=== PATIENT | male | born 1970 | race Caucasian/White ===

== ENCOUNTER 2016-12-07 21:17 | Emergency (ER) | payer OTHER ==
[~2016-12-07] VITALS: Ht 182.9 cm; Wt 147.4 kg
--- NOTE | 2016-12-07 22:21 | PHYS DOC ---
Past Medical History Past Medical History: No Pertinent History Additional Past Medical Histor: chronic back problems Past Surgical History: No Surgical History Alcohol Use: Occasionally Drug Use: None Adult General Chief Complaint Chief Complaint: MULTIPLE COMPLAINTS HPI HPI Patient is a 45 year old M who presents with with a sore throat and chest pain and chills for the past 24 hours. Patient states he is having increased at difficulty swallowing secondary to sore throat. Patient states he is having chest pain on his right side with no cardiac history. Patient denies any previous cardiac disease, no hypertension, no diabetes, no hyperlipidemia the only cardiac risk factor is smoking. Patient states he is having chills off-and -on however has nothing his temperature. Patient has no other complaints. Patient denies any nausea/vomiting/diarrhea. Pertinent exam findings: Female and swelling to the tonsils with exudate Heart was regular rate and rhythm without murmurs Lungs are clear to auscultation bilaterally without crackles wheeze or rales ED course: Patient was seen and evaluated a CBC, BMP, troponin, chest x-ray were ordered 2331: Updated the patient on lab results and x-ray results. Explained to the patient he most likely has strep throat and will treat him with a shot of steroids in the emergency room and send him home with a prescription for antibiotics. Patient comfortable being discharged home. Results: 2226: EKG shows normal sinus rhythm rate of 82 no STEMI CBC 11.2 [place] 128 Troponin negative Chest x-ray NAD MDM: After reviewing the chart, CC/HPI/PMH, physical exam, [lab results], [ radiological results], do not believe the patient have an acute LA or severe bacterial infection warranting further workup and/or admission at this time. I believe the patient has strep throat that he be treated as an outpatient with oral antibiotics. Patient is comfortable being discharged home. Recommended short-term follow-up with PCP in one to 2 days. Additional verbal discharge instructions were provided to the patient and that if symptoms get worse or any new symptoms arise that are worrisome to the patient he is to return to the emergency room immediately Review of Systems Review of Systems GEN: Denies fevers, chills, sweats HEENT: sore throat CV: chest pain RESP: Denies shortness of air, cough GI: Denies n/v/d NEURO: Denies confusion, dizziness MSK: Denies weakness, joint pain/swelling Current Medications Current Medications Current Medications Medications (Trade) Dose Ordered Sig/Siria Start Time Stop Time Status Last Admin Dose Admin Dexamethasone Sodium Phosphate (Decadron) 10 mg 1X ONCE 12/07/16 23:45 12/07/16 23:46 UNV Allergies Allergies Allergies Coded Allergies Type Severity Reaction Last Updated Verified No Known Drug Allergies 06/06/13 No Physical Exam Physical Exam GEN.: No apparent distress. Alert and oriented. HEENT: Head is normocephalic, atraumatic, tonsils swallow with erythema and exudate NECK: Supple. LUNGS: CTAB. HEART: RRR, S1, S2 present. Peripheral pulses intact ABDOMEN: Soft, nontender. Positive bowel sounds. EXTREMITIES: Without any cyanosis. NEUROLOGIC: Normal speech, normal tone PSYCHIATRIC: Normal affect, normal mood. SKIN: No ulcerations Current Patient Data Vital Signs Vital Signs Date Time Temp Pulse Resp B/P (MAP) Pulse Ox O2 Delivery O2 Flow Rate FiO2 12/07/16 22:00 100.7 105 16 159/98 (118) 95 Room Air 100.7 Lab Values Laboratory Tests Test 12/07/16 22:24 White Blood Count 11.2 x10^3/uL (4.0-11.0) H Red Blood Count 4.73 x10^6/uL (4.30-5.70) Hemoglobin 15.5 g/dL (13.0-17.5) Hematocrit 46.3 % (39.0-53.0) Mean Corpuscular Volume 98 fL (79-100) Mean Corpuscular Hemoglobin 33 pg (25-35) Mean Corpuscular Hemoglobin Concent 34 g/dL (31-37) Red Cell Distribution Width 15.1 % (11.5-14.5) H Platelet Count 190 x10^3/uL (140-400) Neutrophils (%) (Auto) 70 % (31-73) Lymphocytes (%) (Auto) 13 % (24-48) L Monocytes (%) (Auto) 17 % (0-9) H Eosinophils (%) (Auto) 0 % (0-3) Basophils (%) (Auto) 1 % (0-3) Neutrophils # (Auto) 7.8 x10^3uL (1.8-7.7) H Lymphocytes # (Auto) 1.4 x10^3/uL (1.0-4.8) Monocytes # (Auto) 1.9 x10^3/uL (0.0-1.1) H Eosinophils # (Auto) 0.0 x10^3/uL (0.0-0.7) Basophils # (Auto) 0.1 x10^3/uL (0.0-0.2) Sodium Level 136 mmol/L (136-145) Potassium Level 3.9 mmol/L (3.5-5.1) Chloride Level 100 mmol/L (98-107) Carbon Dioxide Level 27 mmol/L (21-32) Anion Gap 9 (6-14) Blood Urea Nitrogen 10 mg/dL (8-26) Creatinine 0.9 mg/dL (0.7-1.3) Estimated GFR (Cockcroft-Gault) 91.3 Glucose Level 128 mg/dL (70-99) H Calcium Level 9.2 mg/dL (8.5-10.1) Troponin I Quantitative 0.023 ng/mL (0.000-0.055) Laboratory Tests 12/07/16 22:24 Laboratory Tests 12/07/16 22:24 EKG EKG Normal sinus rhythm rate of 82 no STEMI [] Radiology/Procedures Radiology/Procedures Chest x-ray NAD [] Course & Med Decision Making Course & Med Decision Making Pertinent Labs and Imaging studies reviewed. (See chart for details) [] Dragon Disclaimer Dragon Disclaimer This electronic medical record was generated, in whole or in part, using a voice recognition dictation system. Departure Departure Impression: Primary Impression: Pharyngitis due to Streptococcus species Disposition: HOME, SELF-CARE Condition: IMPROVED Referrals: NO PCP (PCP) Patient Instructions: Strep Throat Additional Instructions: Recommend he follow PCP in one to 2 days and return if symptoms increase Scripts Azithromycin (ZITHROMAX) 250 Mg Tablet 1 PKG PO UD, #6 TAB Prov: CRISTIAN LEON DO 12/07/16 CRISTIAN LEON DO Dec 07, 2016 22:21
[2016-12-07 22:29] LABS: BASO # 0.1 x10^3/uL (0.0-0.2); BASO % 1 % (0-3); EOS % 0 % (0-3); HEMATOCRIT 46.3 % (39.0-53.0); HEMOGLOBIN 15.5 g/dL (13.0-17.5); LYMPH # 1.4 x10^3/uL (1.0-4.8); LYMPH % 13 % (24-48); MEAN CORPUSCULAR HEMOGLOBIN 33 pg (25-35); MEAN CORPUSCULAR HGB CONC 34 g/dL (31-37); MEAN CORPUSCULAR VOLUME 98 fL (79-100); MONO % 17 % (0-9); NEUT % 70 % (31-73); PLATELET COUNT 190 x10^3/uL (140-400); RED BLOOD COUNT 4.73 x10^6/uL (4.30-5.70); RED CELL DISTRIBUTION WIDTH 15.1 % (11.5-14.5); WHITE BLOOD COUNT 11.2 x10^3/uL (4.0-11.0)
[2016-12-07 22:44] LABS: CALCIUM 9.2 mg/dL (8.5-10.1); CREATININE 0.9 mg/dL (0.7-1.3); GFR 91.3; POTASSIUM 3.9 mmol/L (3.5-5.1)
[2016-12-07] MEDS ORDERED: AZIT250T PO (23:36)
[2016-12-07] MEDS ORDERED: DEXAMETHASONE SOD PHOS 4 MG/ML VIAL IV ONE (23:45)
[2016-12-08] VITALS: BP 144/78
[2016-12-08] MEDS ORDERED: DEXAMETHASONE SOD PHOS 20 MG/5 ML VIAL. IM ONE
--- NOTE | 2016-12-08 06:36 | EKG ---
[facility] [address] [place] [address] Test Date: 2016-12-07 Test Time: 22:24:34 Pat Name: SNEHA KOCH Department: Room: Gender: M Biomedical Service Engineer: : 1970 Requested By: CRISTIAN LEON Order Number: [id number] Reading MD: Bailee Cueva Measurements Intervals [place] Rate: 82 P: 26 [place]: 166 QRS: 22 QRSD: 88 T: 31 QT: 336 QTc: 395 Interpretive Statements SINUS RHYTHM QRS(T) CONTOUR ABNORMALITY CONSIDER ANTEROSEPTAL INFARCT CONSIDER INFERIOR MYOCARDIAL DAMAGE ABNORMAL ECG RI6.01 Compared to ECG 11/10/2015 17:41:58 No significant changes Electronically Signed On 12-10-2016 18:59:09 CDT by Bailee Cueva
[2016-12-08 07:27] LABS: NEGATIVE OBC STREP NEG; POSITIVE OBC STREP POS
--- NOTE | 2016-12-08 07:40 | RAD ---
Indication chest pain. PA and lateral views of the chest were obtained. Comparison is made to an examination 13 months earlier. The heart and pulmonary vessels appear normal. The lungs are clear of acute infiltrates. Significant pleural fluid is not seen. There is no pneumothorax. There has not been a significant change when compared to the previous exam. IMPRESSION: No acute or focal process. No significant change
== END 2016-12-08 00:02 | disposition home or self-care (01) ==
LOC: ER 21:17
DX: J02.0 Streptococcal pharyngitis (principal)
CPT/HCPCS: 36415; 71020; 80048; 84484; 85027; 87070; 87880; 93005; 96372; 99285; J1100

== ENCOUNTER 2018-04-23 17:01 | Emergency (ER) | payer SELFPAY ==
[~2018-04-23] VITALS: Ht 182.9 cm; Wt 149.7 kg
[~2018-04-23 17:01] MED LIST: AZIT250T PO
[2018-04-23] MEDS ORDERED: MORPHINE SULFATE 4 MG/ML VIAL. IV/SQ PRN (18:00)
[2018-04-23] MEDS ORDERED: IV NORMAL SALINE 1000ML BAG 1,000 ML IV SCH (18:00)
[2018-04-23 18:11] LABS: BILIRUBIN,URINE NEGATIVE (NEG); CLARITY,URINE CLEAR; COLOR,URINE AMBER; NITRITE,URINE NEGATIVE (NEG); PROTEIN,URINE NEGATIVE (NEG-TRACE)
[2018-04-23 18:11] LABS: BASO # 0.1 x10^3/uL (0.0-0.2); BASO % 1 % (0-3); EOS # 0.1 x10^3/uL (0.0-0.7); EOS % 1 % (0-3); HEMATOCRIT 41.4 % (39.0-53.0); HEMOGLOBIN 14.8 g/dL (13.0-17.5); LYMPH # 0.9 x10^3/uL (1.0-4.8); LYMPH % 12 % (24-48); MEAN CORPUSCULAR HEMOGLOBIN 38 pg (25-35); MEAN CORPUSCULAR HGB CONC 36 g/dL (31-37); MEAN CORPUSCULAR VOLUME 106 fL (79-100); MONO # 0.8 x10^3/uL (0.0-1.1); MONO % 11 % (0-9); NEUT # 5.8 x10^3uL (1.8-7.7); NEUT % 76 % (31-73); PLATELET COUNT 265 x10^3/uL (140-400); RED BLOOD COUNT 3.89 x10^6/uL (4.30-5.70); RED CELL DISTRIBUTION WIDTH 14.4 % (11.5-14.5); WHITE BLOOD COUNT 7.6 x10^3/uL (4.0-11.0)
[2018-04-23 18:21] LABS: BACTERIA,URINE FEW /HPF (0-FEW); RBC,URINE 0 /HPF (0-2); SQUAMOUS EPITHELIAL CELL,UR OCC /LPF; WBC,URINE RARE /HPF (0-4)
[2018-04-23 18:25] LABS: ALBUMIN 2.7 g/dL (3.4-5.0); ALBUMIN/GLOBULIN RATIO 0.6 (1.0-1.7); CALCIUM 9.3 mg/dL (8.5-10.1); CREATININE 0.8 mg/dL (0.7-1.3); GFR 103.6; POTASSIUM 3.7 mmol/L (3.5-5.1)
--- NOTE | 2018-04-23 18:36 | RAD ---
Examination: CT of the abdomen pelvis without contrast HISTORY: History of left flank pain for 3 days COMPARISON: None available Exposure: One or more of the following individualized dose reduction techniques were utilized for this examination: 1. Automated exposure control 2. Adjustment of the mA and/or kV according to patient size 3. Use of iterative reconstruction technique Findings: The bibasilar lungs are clear. No evidence of free air identified in the abdomen. There is diffuse decreased attenuation noted throughout the liver likely hepatic steatosis. The visualized spleen, adrenals grossly appears unremarkable. The stomach is mildly distended. The visualized pancreas grossly appears unremarkable. The small bowel is nondilated. Appendix is normal. Feces and gas noted in the colon. Urinary bladder is mildly distended. There is minimal fat stranding identified about the urinary bladder. No evidence of hydronephrosis. Punctate 1 mm calculus identified in the right and left kidney. Mild degenerative changes lumbar spine. IMPRESSION: 1. Mild fat stranding identified about the urinary bladder. Correlate for cystitis. 2. Punctate 1 mm calculus identified in the right and left kidney. No evidence of hydronephrosis. . 3. Hepatic steatosis. Electronically signed by: Devang Crane MD (04/23/2018 6:33 PM) [facility]
--- NOTE | 2018-04-23 18:44 | PHYS DOC ---
Past Medical History Past Medical History: Kidney Stone, Other Additional Past Medical Histor: chronic back problems Past Surgical History: No Surgical History Alcohol Use: Heavy Drug Use: Marijuana, Methamphetamine Adult General Chief Complaint Chief Complaint: FLANK PAIN HPI HPI 47-year-old male presents for evaluation of left flank pain since yesterday. Patient reports increased pain with movement. He reports the pain intermittently comes around to his groin today. He denies testicular pain. He reports history of kidney stones approximately 4 years ago. Denies any dysuria urgency or frequency. No fevers or diarrhea. Patient states he has had some dark colored urine for the last 4 months. Patient drinks alcohol daily. Patient denies hematemesis Review of Systems Review of Systems Constitutional: Denies fever or chills [] Eyes: Denies change in visual acuity, redness, or eye pain [] HENT: Denies nasal congestion or sore throat [] Respiratory: Denies cough or shortness of breath [] Cardiovascular: No additional information not addressed in HPI [] : Denies dysuria [] All other systems were reviewed and found to be within normal limits, except as documented in this note. Current Medications Current Medications Current Medications Medications (Trade) Dose Ordered Sig/Siria Start Time Stop Time Status Last Admin Dose Admin Morphine Sulfate (Morphine Sulfate) 4 mg PRN Q15MIN PRN 04/23/18 18:00 04/23/18 20:30 DC 04/23/18 18:22 4 MG Sodium Chloride 1,000 ml @ 1,000 mls/hr Q1H 04/23/18 18:00 04/23/18 18:59 DC 04/23/18 18:21 1,000 MLS/HR Allergies Allergies Allergies Coded Allergies Type Severity Reaction Last Updated Verified No Known Drug Allergies 06/06/13 No Physical Exam Physical Exam Constitutional: Well developed, well nourished, no acute distress, non-toxic appearance. [] Eyes: PERRLA, EOMI, conjunctiva normal, no discharge. [] Neck: Normal range of motion, no tenderness, supple, no stridor. [] Cardiovascular:Heart rate regular rhythm, no murmur [] Lungs & Thorax: Bilateral breath sounds clear to auscultation [] Abdomen: Bowel sounds normal, soft, no tenderness, no masses, no pulsatile masses. [] Skin: Warm, dry, no erythema, no rash. [] Back: Left CVA tenderness, no midline tenderness, tenderness to palpation to the latissimus dorsi musculature Neurologic: Alert and oriented X 3, normal motor function, normal sensory function, no focal deficits noted. [] Psychologic: Affect normal, judgement normal, mood normal. [] Current Patient Data Vital Signs Vital Signs Date Time Temp Pulse Resp B/P (MAP) Pulse Ox O2 Delivery O2 Flow Rate FiO2 04/23/18 20:00 78 20 141/81 (101) 96 Room Air 04/23/18 17:15 97.3 97.3 Lab Values Laboratory Tests Test 04/23/18 17:20 04/23/18 17:35 Urine Collection Type Unknown Urine Color Elza Urine Clarity Clear Urine pH 6.0 Urine Specific [place] 1.020 Urine Protein Negative mg/dL (NEG-TRACE) Urine Glucose (UA) 500 mg/dL (NEG) Urine Ketones (Stick) Negative mg/dL (NEG) Urine Blood Negative (NEG) Urine Nitrite Negative (NEG) Urine Bilirubin Negative (NEG) Urine Urobilinogen Dipstick 1.0 mg/dL (0.2 mg/dL) Urine Leukocyte Esterase Trace (NEG) Urine RBC 0 /HPF (0-2) Urine WBC Rare /HPF (0-4) Urine Squamous Epithelial Cells Occ /LPF Urine Bacteria Few /HPF (0-FEW) Urine Mucus Slight /LPF White Blood Count 7.6 x10^3/uL (4.0-11.0) Red Blood Count 3.89 x10^6/uL (4.30-5.70) L Hemoglobin 14.8 g/dL (13.0-17.5) Hematocrit 41.4 % (39.0-53.0) Mean Corpuscular Volume 106 fL (79-100) H Mean Corpuscular Hemoglobin 38 pg (25-35) H Mean Corpuscular Hemoglobin Concent 36 g/dL (31-37) Red Cell Distribution Width 14.4 % (11.5-14.5) Platelet Count 265 x10^3/uL (140-400) Neutrophils (%) (Auto) 76 % (31-73) H Lymphocytes (%) (Auto) 12 % (24-48) L Monocytes (%) (Auto) 11 % (0-9) H Eosinophils (%) (Auto) 1 % (0-3) Basophils (%) (Auto) 1 % (0-3) Neutrophils # (Auto) 5.8 x10^3uL (1.8-7.7) Lymphocytes # (Auto) 0.9 x10^3/uL (1.0-4.8) L Monocytes # (Auto) 0.8 x10^3/uL (0.0-1.1) Eosinophils # (Auto) 0.1 x10^3/uL (0.0-0.7) Basophils # (Auto) 0.1 x10^3/uL (0.0-0.2) Sodium Level 138 mmol/L (136-145) Potassium Level 3.7 mmol/L (3.5-5.1) Chloride Level 102 mmol/L (98-107) Carbon Dioxide Level 30 mmol/L (21-32) Anion Gap 6 (6-14) Blood Urea Nitrogen 7 mg/dL (8-26) L Creatinine 0.8 mg/dL (0.7-1.3) Estimated GFR (Cockcroft-Gault) 103.6 BUN/Creatinine Ratio 9 (6-20) Glucose Level 221 mg/dL (70-99) H Calcium Level 9.3 mg/dL (8.5-10.1) Total Bilirubin 1.0 mg/dL (0.2-1.0) Aspartate Amino Transferase (AST) 94 U/L (15-37) H Alanine Aminotransferase (ALT) 68 U/L (16-63) H Alkaline Phosphatase 158 U/L (46-116) H Total Protein 7.0 g/dL (6.4-8.2) Albumin 2.7 g/dL (3.4-5.0) L Albumin/Globulin Ratio 0.6 (1.0-1.7) L Laboratory Tests 04/23/18 17:35 Laboratory Tests 04/23/18 17:35 EKG EKG [] Radiology/Procedures Radiology/Procedures [PROCEDURE: CT ABDOMEN PELVIS WO CONTRAST Examination: CT of the abdomen pelvis without contrast HISTORY: History of left flank pain for 3 days COMPARISON: None available Exposure: One or more of the following individualized dose reduction techniques were utilized for this examination: 1. Automated exposure control 2. Adjustment of the mA and/or kV according to patient size 3. Use of iterative reconstruction technique Findings: The bibasilar lungs are clear. No evidence of free air identified in the abdomen. There is diffuse decreased attenuation noted throughout the liver likely hepatic steatosis. The visualized spleen, adrenals grossly appears unremarkable. The stomach is mildly distended. The visualized pancreas grossly appears unremarkable. The small bowel is nondilated. Appendix is normal. Feces and gas noted in the colon. Urinary bladder is mildly distended. There is minimal fat stranding identified about the urinary bladder. No evidence of hydronephrosis. Punctate 1 mm calculus identified in the right and left kidney. Mild degenerative changes lumbar spine. IMPRESSION: 1. Mild fat stranding identified about the urinary bladder. Correlate for cystitis. 2. Punctate 1 mm calculus identified in the right and left kidney. No evidence of hydronephrosis. . 3. Hepatic steatosis.] PROCEDURE: ABDOMEN LTD Indication:elevated lfts TECHNIQUE: Grayscale, color Doppler and spectral waveform is of the abdomen obtained. COMPARISON:None FINDINGS:IVC is suboptimally visualized. Main portal vein is patent. Liver is enlarged measuring 25 cm in longest dimension with diffusely increased echogenicity and decreased through transmission. No pericholecystic fluid or gallbladder wall thickening. No gallstones. CBD measures 5 mm in diameter and is within normal limits. Right kidney is suboptimally visualized but approximately measures 13 cm in longest dimension without hydronephrosis. IMPRESSION: Moderate hepatomegaly with hepatic steatosis. Course & Med Decision Making Course & Med Decision Making Pertinent Labs and Imaging studies reviewed. (See chart for details) [Patient has elevated liver function enzymes, he is a daily alcohol drinker. He is not having any right upper quadrant abdominal pain. ultrasound Negative for for Cholecystitis. Discussed Findings with Patient, have referred him for follow -up with primary care, he does have a blood glucose 220 and glucose in the urine sample, discussed diabetes with patient and need for outpatient follow-up , he verbalizes understanding of these discharge instructions. Also discussed alcohol cessation. patient is pain-free at time of discharge. This case was discussed with Dr. Gibson who agrees with discharge home .] Matti Disclaimer Matti Disclaimer This electronic medical record was generated, in whole or in part, using a voice recognition dictation system. Departure Departure Impression: Primary Impression: Flank pain Additional Impressions: Hyperglycemia Elevated LFTs Disposition: HOME, SELF-CARE Condition: STABLE Referrals: NO PCP (PCP) Patient Instructions: Flank Pain, Hyperglycemia Scripts Cyclobenzaprine Hcl (CYCLOBENZAPRINE HCL) 10 Mg Tablet 10 MG PO TID PRN for PAIN, #20 TAB Prov: KAYCE TOLENTINO APRN 04/23/18 Problem Qualifiers KAYCE TOLENTINO APRN Apr 23, 2018 18:44
[2018-04-23 20:00] VITALS: BP 141/81
[2018-04-23] MEDS ORDERED: CYCL10TA2 PO (20:07)
--- NOTE | 2018-04-23 20:45 | RAD ---
Indication:elevated lfts TECHNIQUE: Grayscale, color Doppler and spectral waveform is of the abdomen obtained. COMPARISON:None FINDINGS:IVC is suboptimally visualized. Main portal vein is patent. Liver is enlarged measuring 25 cm in longest dimension with diffusely increased echogenicity and decreased through transmission. No pericholecystic fluid or gallbladder wall thickening. No gallstones. CBD measures 5 mm in diameter and is within normal limits. Right kidney is suboptimally visualized but approximately measures 13 cm in longest dimension without hydronephrosis. IMPRESSION: Moderate hepatomegaly with hepatic steatosis. Electronically signed by: Parker Cowan DO (04/23/2018 8:42 PM) [facility]
== END 2018-04-23 20:30 | disposition home or self-care (01) ==
LOC: ER 17:01
DX: R10.9 Unspecified abdominal pain (principal); R73.9 Hyperglycemia, unspecified; R79.89 Other specified abnormal findings of blood chemistry; G89.29 Other chronic pain; F10.20 Alcohol dependence, uncomplicated; Z87.442 Personal history of urinary calculi; Y90.9 Presence of alcohol in blood, level not specified
CPT/HCPCS: 36415; 74176; 76705; 80053; 81001; 85025; 87086; 96374; 99285; J2270; J7030

== ENCOUNTER 2018-07-30 20:09 | Emergency (ER) | payer SELFPAY ==
[~2018-07-30] VITALS: Ht 182.9 cm; Wt 158.8 kg
[~2018-07-30 20:09] MED LIST changes: +CYCL10TA2 PO
--- NOTE | 2018-07-30 21:10 | PHYS DOC ---
Past Medical History Past Medical History: Kidney Stone, Other Additional Past Medical Histor: chronic back problems Past Surgical History: No Surgical History Alcohol Use: Heavy Drug Use: Marijuana, Methamphetamine Adult General Chief Complaint Chief Complaint: FLANK PAIN HPI HPI Patient is a 47-year-old male who presents with complaint of left flank pain that has been present for the last 2-3 weeks. Patient states that pain has been mild to moderate and rates it a 4 out of 10. Patient states that 2 days ago he started having some hematuria and states that yesterday his urine looked like almost straight blood. He states that this morning he had passed a couple of clots in his urine but otherwise the urine has cleared up. He also indicates that he has pain in his suprapubic region that is been present for quite some time and states that he was seen for this about a month ago. He does indicate that he has a history of kidney stones and just figured that he probably passed a kidney stone that was jagged, causing the blood in the urine. He denies any fever. He does indicate that he was having some urinary discomfort associated with the hematuria but that has also cleared up since the urine cleared up. He indicates that there are no alleviating or exacerbating factors. Review of Systems Review of Systems Constitutional: Denies fever or chills [] Respiratory: Denies cough or shortness of breath [] Cardiovascular: No additional information not addressed in HPI [] GI: Complains of suprapubic abdominal pain without nausea, vomiting or diarrhea [] : [place] of dysuria and hematuria [] Musculoskeletal: Complains of left-sided back/posterior flank pain [] All other systems were reviewed and found to be within normal limits, except as documented in this note. Current Medications Current Medications Current Medications Medications (Trade) Dose Ordered Sig/[facility] Start Time Stop Time Status Last Admin Dose Admin Sodium Chloride 500 ml @ 500 mls/hr 1X ONCE 07/30/18 21:15 07/30/18 22:14 DC 07/30/18 21:31 500 MLS/HR Allergies Allergies Allergies Coded Allergies Type Severity Reaction Last Updated Verified No Known Drug Allergies 06/06/13 No Physical Exam Physical Exam Constitutional: Well developed, well nourished, no acute distress, non-toxic appearance. [] HENT: Normocephalic, atraumatic, bilateral external ears normal, oropharynx moist, no oral exudates, nose normal. [] Eyes: PERRLA, EOMI, conjunctiva normal, no discharge. [] Neck: Normal range of motion, no tenderness, supple, no stridor. [] Cardiovascular: Regular rate and rhythm [] Lungs & Thorax: Bilateral breath sounds clear to auscultation [] Abdomen: Bowel sounds normal, soft, with suprapubic tenderness. [] Skin: Warm, dry, no erythema, no rash. [] Extremities: No tenderness, no cyanosis, no clubbing, ROM intact, no edema. [] Neurologic: Alert and oriented X 3, no focal deficits noted. [] Current Patient Data Vital Signs Vital Signs Date Time Temp Pulse Resp B/P (MAP) Pulse Ox O2 Delivery O2 Flow Rate FiO2 07/30/18 20:31 98.6 120 16 141/91 (108) 97 Room Air 98.6 Lab Values Laboratory Tests Test 07/30/18 20:35 07/30/18 20:50 Urine Color Yellow Urine Clarity Clear Urine pH 6.0 Urine Specific [place] >=1.030 Urine Protein Negative mg/dL (NEG-TRACE) Urine Glucose (UA) >=1000 mg/dL (NEG) Urine Ketones (Stick) Negative mg/dL (NEG) Urine Blood Negative (NEG) Urine Nitrite Negative (NEG) Urine Bilirubin Negative (NEG) Urine Urobilinogen Dipstick 1.0 mg/dL (0.2 mg/dL) Urine Leukocyte Esterase Negative (NEG) Urine RBC 0 /HPF (0-2) Urine WBC 1-4 /HPF (0-4) Urine Squamous Epithelial Cells Occ /LPF Urine Bacteria 0 /HPF (0-FEW) White Blood Count 9.6 x10^3/uL (4.0-11.0) Red Blood Count 3.96 x10^6/uL (4.30-5.70) L Hemoglobin 12.9 g/dL (13.0-17.5) L Hematocrit 38.6 % (39.0-53.0) L Mean Corpuscular Volume 98 fL (79-100) Mean Corpuscular Hemoglobin 33 pg (25-35) Mean Corpuscular Hemoglobin Concent 33 g/dL (31-37) Red Cell Distribution Width 17.2 % (11.5-14.5) H Platelet Count 205 x10^3/uL (140-400) Neutrophils (%) (Auto) 65 % (31-73) Lymphocytes (%) (Auto) 21 % (24-48) L Monocytes (%) (Auto) 11 % (0-9) H Eosinophils (%) (Auto) 2 % (0-3) Basophils (%) (Auto) 1 % (0-3) Neutrophils # (Auto) 6.2 x10^3uL (1.8-7.7) Lymphocytes # (Auto) 2.0 x10^3/uL (1.0-4.8) Monocytes # (Auto) 1.1 x10^3/uL (0.0-1.1) Eosinophils # (Auto) 0.2 x10^3/uL (0.0-0.7) Basophils # (Auto) 0.1 x10^3/uL (0.0-0.2) Sodium Level 139 mmol/L (136-145) Potassium Level 3.2 mmol/L (3.5-5.1) L Chloride Level 101 mmol/L (98-107) Carbon Dioxide Level 26 mmol/L (21-32) Anion Gap 12 (6-14) Blood Urea Nitrogen 5 mg/dL (8-26) L Creatinine 0.9 mg/dL (0.7-1.3) Estimated GFR (Cockcroft-Gault) 90.4 BUN/Creatinine Ratio 6 (6-20) Glucose Level 356 mg/dL (70-99) H Calcium Level 8.5 mg/dL (8.5-10.1) Total Bilirubin 0.7 mg/dL (0.2-1.0) Aspartate Amino Transferase (AST) 77 U/L (15-37) H Alanine Aminotransferase (ALT) 32 U/L (16-63) Alkaline Phosphatase 156 U/L (46-116) H Total Protein 7.8 g/dL (6.4-8.2) Albumin 2.8 g/dL (3.4-5.0) L Albumin/Globulin Ratio 0.6 (1.0-1.7) L Laboratory Tests 07/30/18 20:50 Laboratory Tests 07/30/18 20:50 EKG EKG [] Radiology/Procedures Radiology/Procedures [] Impressions: PROCEDURE: CT ABDOMEN PELVIS WO CONTRAST PQRS Compliance statement: One or more of the following individualized dose reduction techniques were utilized for this examination: 1. Automated exposure control. 2. Adjustment of the mA and/or kV according to patient size. 3. Use of iterative reconstruction technique. Indication:lt.flank pain, gross hematuria TECHNIQUE: CT abdomen and pelvis without IV contrast with multiplanar reformats. COMPARISON: 04/23/2018 FINDINGS: Limited evaluation of solid abdominal and pelvic organs due to lack of IV contrast. Heart is normal in size. No pericardial or pleural effusion. Diffuse hepatic steatosis. Spleen is unenlarged. No radiopaque gallstones. Noncontrast appearance of the pancreas and adrenals are normal limits. Punctate bilateral nonobstructing renal stone. No hydronephrosis. No enlarged retroperitoneal or pelvic adenopathy. No free pelvic fluid or ascites. No bowel obstruction. Appendix is normal in caliber. The prostate and seminal vesicles show no large mass. Recanalization of paraumbilical vein is seen. Multiple perigastric and perisplenic varices are seen. Urinary bladder demonstrates no radiopaque stones. No pneumoperitoneum. No suspicious bony lesion. IMPRESSION: Limited evaluation of solid abdominal and pelvic organs due to lack of IV contrast. 1. Hepatic steatosis. 2. Punctate bilateral nonobstructing renal stones. 3. Evidence of portal venous hypertension. Electronically signed by: Parker Cowan DO (07/30/2018 9:35 PM) [facility] Course & Med Decision Making Course & Med Decision Making Pertinent Labs and Imaging studies reviewed. (See chart for details) [] Dragon Disclaimer Dragon Disclaimer This electronic medical record was generated, in whole or in part, using a voice recognition dictation system. Departure Departure Impression: Primary Impression: Flank pain Additional Impressions: Hyperglycemia Hematuria Disposition: 01 HOME, SELF-CARE Condition: STABLE Referrals: NO PCP (PCP) Patient Instructions: Flank Pain, Hematuria, Adult, Hyperglycemia Problem Qualifiers Additional Impressions: Hematuria Hematuria type: unspecified type Qualified Codes: R31.9 - Hematuria, unspecified MJ THORNTON Jr., DO Jul 30, 2018 21:10
[2018-07-30 21:14] LABS: BILIRUBIN,URINE NEGATIVE (NEG); CLARITY,URINE CLEAR; COLOR,URINE YELLOW; NITRITE,URINE NEGATIVE (NEG); PROTEIN,URINE NEGATIVE (NEG-TRACE)
[2018-07-30 21:15] LABS: BASO # 0.1 x10^3/uL (0.0-0.2); BASO % 1 % (0-3); EOS # 0.2 x10^3/uL (0.0-0.7); EOS % 2 % (0-3); HEMATOCRIT 38.6 % (39.0-53.0); HEMOGLOBIN 12.9 g/dL (13.0-17.5); LYMPH % 21 % (24-48); MEAN CORPUSCULAR HEMOGLOBIN 33 pg (25-35); MEAN CORPUSCULAR HGB CONC 33 g/dL (31-37); MEAN CORPUSCULAR VOLUME 98 fL (79-100); MONO # 1.1 x10^3/uL (0.0-1.1); MONO % 11 % (0-9); NEUT # 6.2 x10^3uL (1.8-7.7); NEUT % 65 % (31-73); PLATELET COUNT 205 x10^3/uL (140-400); RED BLOOD COUNT 3.96 x10^6/uL (4.30-5.70); RED CELL DISTRIBUTION WIDTH 17.2 % (11.5-14.5); WHITE BLOOD COUNT 9.6 x10^3/uL (4.0-11.0)
[2018-07-30] MEDS ORDERED: IV NORMAL SALINE 500ML BAG 500 ML IV ONE (21:15)
[2018-07-30 21:22] LABS: BACTERIA,URINE 0 /HPF (0-FEW); RBC,URINE 0 /HPF (0-2); SQUAMOUS EPITHELIAL CELL,UR OCC /LPF
[2018-07-30 21:23] LABS: CALCIUM 8.5 mg/dL (8.5-10.1); CREATININE 0.9 mg/dL (0.7-1.3); GFR 90.4; POTASSIUM 3.2 mmol/L (3.5-5.1)
[2018-07-30 21:30] LABS: ALBUMIN 2.8 g/dL (3.4-5.0); ALBUMIN/GLOBULIN RATIO 0.6 (1.0-1.7); TOTAL BILIRUBIN 0.7 mg/dL (0.2-1.0); TOTAL PROTEIN 7.8 g/dL (6.4-8.2)
--- NOTE | 2018-07-30 21:39 | RAD ---
PQRS Compliance statement: One or more of the following individualized dose reduction techniques were utilized for this examination: 1. Automated exposure control. 2. Adjustment of the mA and/or kV according to patient size. 3. Use of iterative reconstruction technique. Indication:lt.flank pain, gross hematuria TECHNIQUE: CT abdomen and pelvis without IV contrast with multiplanar reformats. COMPARISON: 04/23/2018 FINDINGS: Limited evaluation of solid abdominal and pelvic organs due to lack of IV contrast. Heart is normal in size. No pericardial or pleural effusion. Diffuse hepatic steatosis. Spleen is unenlarged. No radiopaque gallstones. Noncontrast appearance of the pancreas and adrenals are normal limits. Punctate bilateral nonobstructing renal stone. No hydronephrosis. No enlarged retroperitoneal or pelvic adenopathy. No free pelvic fluid or ascites. No bowel obstruction. Appendix is normal in caliber. The prostate and seminal vesicles show no large mass. Recanalization of paraumbilical vein is seen. Multiple perigastric and perisplenic varices are seen. Urinary bladder demonstrates no radiopaque stones. No pneumoperitoneum. No suspicious bony lesion. IMPRESSION: Limited evaluation of solid abdominal and pelvic organs due to lack of IV contrast. 1. Hepatic steatosis. 2. Punctate bilateral nonobstructing renal stones. 3. Evidence of portal venous hypertension. Electronically signed by: Parker Cowan DO (07/30/2018 9:35 PM) [facility]
[2018-07-30 22:56] VITALS: BP 138/75
== END 2018-07-30 23:20 | disposition home or self-care (01) ==
LOC: ER 20:09
DX: N20.0 Calculus of kidney (principal); R10.30 Lower abdominal pain, unspecified; R73.9 Hyperglycemia, unspecified; K76.0 Fatty (change of) liver, not elsewhere classified; K76.6 Portal hypertension; F10.20 Alcohol dependence, uncomplicated; Y90.9 Presence of alcohol in blood, level not specified; Z87.442 Personal history of urinary calculi
CPT/HCPCS: 36415; 74176; 80053; 81001; 85025; 99284; J7040

== ENCOUNTER 2019-12-13 01:00 | Emergency (ER) | payer SELFPAY ==
[~2019-12-13] VITALS: Ht 185.4 cm; Wt 150.0 kg
[2019-12-13 02:04] LABS: BILIRUBIN,URINE NEGATIVE (NEG); CLARITY,URINE CLEAR; COLOR,URINE YELLOW; NITRITE,URINE NEGATIVE (NEG); PROTEIN,URINE NEGATIVE (NEG-TRACE); UROBILINOGEN,URINE 0.2 mg/dL (0.2 mg/dL)
[2019-12-13 02:05] LABS: BASO # 0.1 x10^3/uL (0.0-0.2); BASO % 1 % (0-3); EOS # 0.2 x10^3/uL (0.0-0.7); EOS % 2 % (0-3); HEMATOCRIT 32.9 % (39.0-53.0); LYMPH # 1.5 x10^3/uL (1.0-4.8); LYMPH % 23 % (24-48); MEAN CORPUSCULAR HEMOGLOBIN 30 pg (25-35); MEAN CORPUSCULAR HGB CONC 34 g/dL (31-37); MEAN CORPUSCULAR VOLUME 89 fL (79-100); MONO # 0.9 x10^3/uL (0.0-1.1); MONO % 13 % (0-9); NEUT # 4.1 x10^3/uL (1.8-7.7); NEUT % 61 % (31-73); PLATELET COUNT 128 x10^3/uL (140-400); RED CELL DISTRIBUTION WIDTH 18.9 % (11.5-14.5); WHITE BLOOD COUNT 6.7 x10^3/uL (4.0-11.0)
[2019-12-13 02:09] LABS: BACTERIA,URINE 0 /HPF (0-FEW); RBC,URINE 0 /HPF (0-2); SQUAMOUS EPITHELIAL CELL,UR FEW /LPF; WBC,URINE OCC /HPF (0-4)
[2019-12-13 02:12] LABS: CALCIUM 8.1 mg/dL (8.5-10.1); CREATININE 0.9 mg/dL (0.7-1.3); GFR 90.1; POTASSIUM 3.7 mmol/L (3.5-5.1)
[2019-12-13 02:18] LABS: ALBUMIN/GLOBULIN RATIO 0.8 (1.0-1.7); TOTAL BILIRUBIN 0.7 mg/dL (0.2-1.0); TOTAL PROTEIN 6.7 g/dL (6.4-8.2)
--- NOTE | 2019-12-13 02:39 | PHYS DOC ---
Past Medical History Past Medical History: Hypertension, Kidney Stone, Other Additional Past Medical Histor: chronic back problems Past Surgical History: No Surgical History Smoking Status: Current Every Day Smoker Alcohol Use: Heavy Drug Use: Marijuana, Methamphetamine General Adult EDM: Chief Complaint: MALE UROGENITAL PROBLEMS HPI: HPI: 48 yo F PMH DM, daily alcohol abuse w/liver cirrhosis, morbid obesity with chronic back pain, nephrolithiasis, and thc (former meth use), presents to the ED with complaints of " I cannot make it to the bathroom in time," complains of urinary and bowel incontinence since yesterday afternoon at 4 PM. Has had 2 episodes of urinary incontinence and one episode of bowel incontinence. Reports he feels the urge to urinate but does not make it to the bathroom. Last bowel movement was yesterday around 4 PM when patient had a loose watery bowel movement in his pants-had normal sensation prior to voiding, could not make it to the bathroom. Patient denies any history of trauma or falls. Back pain is chronic with no new characteristics. Known family history of cancer. Denies alcohol daily and last drink was 2 hours ago. No history of IV drug use, immunocompromise state, or hospitalization. ROS: Denies associated fever, chills, weight loss, night sweats, saddle anesthesia, lower extremity weakness, neck pain, bilateral paresthesias, radiculopathy, sore throat, cough, chest pain, nausea, vomiting, dyspnea, headache, severe pain, leg swelling, rash. Review of Systems: Review of Systems: Constitutional: Denies fever or chills. [] Eyes: Denies change in visual acuity. [] HENT: Denies nasal congestion or sore throat. [] Respiratory: Denies cough or shortness of breath. [] Cardiovascular: Denies chest pain or edema. [] GI: Denies abdominal pain, nausea, vomiting, bloody stools or diarrhea. [] : Denies dysuria. [] Musculoskeletal: Denies back pain or joint pain. [] Integument: Denies rash. [] Neurologic: Denies headache, focal weakness or sensory changes. [] Endocrine: Denies polyuria or polydipsia. [] Lymphatic: Denies swollen glands. [] Psychiatric: Denies depression or anxiety. [] Allergies: Allergies: Allergies Coded Allergies Type Severity Reaction Last Updated Verified No Known Drug Allergies 06/06/13 No Physical Exam: PE: Constitutional: Well developed, well nourished, no acute distress/no pain, non- toxic appearance, morbid obesity, aob with mild ataxic gait HENT: Normocephalic, atraumatic, bilateral external ears normal, oropharynx moist, no oral exudates, nose normal. [] Eyes: EOMI, conjunctiva normal, no discharge. [] Neck: Normal range of motion, no tenderness, supple, no stridor. [] Cardiovascular:Heart rate regular rhythm, no murmur [] Lungs & Thorax: Bilateral breath sounds clear to auscultation [] Abdomen: Bowel sounds normal, soft, no tenderness, no masses, no pulsatile masses. [] Skin: Warm, dry, no erythema, no rash. [] Back: No tenderness, no CVA tenderness. [] Extremities: No tenderness, no cyanosis, no clubbing, ROM intact, no edema. [] Normal straight leg test, 5/5 UE/ANKUSH muscle strength Neurologic: Alert and oriented X 3, normal motor function, normal sensory function, no focal deficits noted. [] Psychologic: Affect normal, judgement normal, mood normal. [] Postvoid residual bladder scan 100 cc Current Patient Data: Labs: Laboratory Tests Test 12/13/19 01:48 12/13/19 01:53 Urine Collection Type Unknown Urine Color Yellow Urine Clarity Clear Urine pH 6.0 (<5.0-8.0) Urine Specific [place] 1.015 (1.000-1.030) Urine Protein Negative mg/dL (NEG-TRACE) Urine Glucose (UA) Negative mg/dL (NEG) Urine Ketones (Stick) Negative mg/dL (NEG) Urine Blood Negative (NEG) Urine Nitrite Negative (NEG) Urine Bilirubin Negative (NEG) Urine Urobilinogen Dipstick 0.2 mg/dL (0.2 mg/dL) Urine Leukocyte Esterase Negative (NEG) Urine RBC 0 /HPF (0-2) Urine WBC Occ /HPF (0-4) Urine Squamous Epithelial Cells Few /LPF Urine Bacteria 0 /HPF (0-FEW) White Blood Count 6.7 x10^3/uL (4.0-11.0) Red Blood Count 3.70 x10^6/uL (4.30-5.70) L Hemoglobin 11.0 g/dL (13.0-17.5) L Hematocrit 32.9 % (39.0-53.0) L Mean Corpuscular Volume 89 fL (79-100) Mean Corpuscular Hemoglobin 30 pg (25-35) Mean Corpuscular Hemoglobin Concent 34 g/dL (31-37) Red Cell Distribution Width 18.9 % (11.5-14.5) H Platelet Count 128 x10^3/uL (140-400) L Neutrophils (%) (Auto) 61 % (31-73) Lymphocytes (%) (Auto) 23 % (24-48) L Monocytes (%) (Auto) 13 % (0-9) H Eosinophils (%) (Auto) 2 % (0-3) Basophils (%) (Auto) 1 % (0-3) Neutrophils # (Auto) 4.1 x10^3/uL (1.8-7.7) Lymphocytes # (Auto) 1.5 x10^3/uL (1.0-4.8) Monocytes # (Auto) 0.9 x10^3/uL (0.0-1.1) Eosinophils # (Auto) 0.2 x10^3/uL (0.0-0.7) Basophils # (Auto) 0.1 x10^3/uL (0.0-0.2) Sodium Level 138 mmol/L (136-145) Potassium Level 3.7 mmol/L (3.5-5.1) Chloride Level 102 mmol/L (98-107) Carbon Dioxide Level 26 mmol/L (21-32) Anion Gap 10 (6-14) Blood Urea Nitrogen 9 mg/dL (8-26) Creatinine 0.9 mg/dL (0.7-1.3) Estimated GFR (Cockcroft-Gault) 90.1 BUN/Creatinine Ratio 10 (6-20) Glucose Level 201 mg/dL (70-99) H Calcium Level 8.1 mg/dL (8.5-10.1) L Total Bilirubin 0.7 mg/dL (0.2-1.0) Aspartate Amino Transferase (AST) 83 U/L (15-37) H Alanine Aminotransferase (ALT) 51 U/L (16-63) Alkaline Phosphatase 109 U/L (46-116) Total Protein 6.7 g/dL (6.4-8.2) Albumin 3.0 g/dL (3.4-5.0) L Albumin/Globulin Ratio 0.8 (1.0-1.7) L Ethyl Alcohol Level 186 mg/dL (0-10) H Laboratory Tests 12/13/19 01:53 Laboratory Tests 12/13/19 01:53 Vital Signs: Vital Signs Date Time Temp Pulse Resp B/P (MAP) Pulse Ox O2 Delivery O2 Flow Rate FiO2 12/13/19 01:23 98.3 95 30 155/89 (111) 98 Room Air 98.3 EKG: EKG: [] Radiology/Procedures: Radiology/Procedures: [] Impression: 2 episodes of urinary incontinence, suspect likely related to restricted mobility and alcohol intoxication. Patient is not on any routine medications, denies any substance abuse. Urinalysis shows no signs of infection. Patient is afebrile and has no neurologic deficits/radiculopathy/paresthesias/twitches/LE pain. Normal post void residual bladder scan. Patient with normal saddle sensation, states he can feel the urge to have a bowel movement or urinate but does not make it to the bathroom in time. Prior to this had no urinary retention and voided without difficulty. I did thoroughly discuss with patient differential of transverse myelitis, cauda equina, cord compression or epidural abscess. Given absence of neurologic findings and saddle anesthesia, will DC with strict ED return precautions for the symptoms. Encourage PMD establishment and was given referral forms. All of patient's questions were answered and he was stable at time of discharge. Course & Med Decision Making: Course & Med Decision Making Pertinent Labs and Imaging studies reviewed. (See chart for details) [] Dragon Disclaimer: Dragon Disclaimer: This electronic medical record was generated, in whole or in part, using a voice recognition dictation system. Departure Departure Impression: Primary Impression: Urinary incontinence Additional Impression: Alcohol intoxication Disposition: HOME, SELF-CARE Condition: STABLE Referrals: NO PCP (PCP) Patient Instructions: Alcohol Intoxication, Urinary Incontinence-Brief Justicifation of Admission Dx: Justifications for Admission: Justification of Admission Dx: N/A CONG GARZA DO Dec 13, 2019 02:39
[2019-12-13 03:23] VITALS: BP 129/61
== END 2019-12-13 03:28 | disposition home or self-care (01) ==
LOC: ER 01:00
DX: N39.498 Other specified urinary incontinence (principal); F10.229 Alcohol dependence with intoxication, unspecified; R20.2 Paresthesia of skin; I10 Essential (primary) hypertension; G89.29 Other chronic pain; K74.60 Unspecified cirrhosis of liver; F15.90 Other stimulant use, unspecified, uncomplicated; F17.200 Nicotine dependence, unspecified, uncomplicated; F12.90 Cannabis use, unspecified, uncomplicated; Z87.442 Personal history of urinary calculi
CPT/HCPCS: 36415; 80053; 81001; 85025; 99285; G0480